=== PATIENT | female | born 1940 | race Caucasian/White ===

== ENCOUNTER 2018-01-16 10:54 | Observation (INO) | payer OTHER ==
--- NOTE | 2018-01-16 11:17 | CPEKG ---
Heart Rate: 53 RR Interval: 1132 P-R Interval: 264 QRSD Interval: 68 QT Interval: 452 QTC Interval: 425 P [place]: 46 QRS [place]: -13 T Wave [place]: 80 EKG Severity - ABNORMAL ECG - EKG Impression: SINUS RHYTHM EKG Impression: FIRST DEGREE AV BLOCK EKG Impression: LEFT ATRIAL ABNORMALITY Electronically Signed By: Hawa Sheehan 16-Jan-2018 15:17:43
[2018-01-16] MEDS ORDERED: NS 1,000 ML IV ONE ×3 (11:23→12:57)
[2018-01-16] MEDS ORDERED: NALOXONE HCL 0.4 MG/ML INJ IVP ONE (11:25)
[2018-01-16 11:34] LABS: PLATELET COUNT 305 10^3/uL (150-400)
--- NOTE | 2018-01-16 11:48 | EDPHY ---
H & P Stated Complaint: change in mental status-?syncope this am? Time Seen by Provider: 01/16/18 11:00 HPI/ROS: CHIEF COMPLAINT: Syncope HISTORY OF PRESENT ILLNESS: This is a 77-year-old female brought to the emergency department by her after she became unresponsive while they were driving in the car. 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 Her tells me that they were driving from [employer] to [employer] when he noticed that her head was nodding forward. She did not respond when he called her name. Her head then La old backward. He continued to call her name and she then woke up but seemed sleepy. She is unable to provide any description of what occurred. She has no complaints at the time of my interview -she denies headache, confusion, visual changes, weakness, numbness, chest pain , difficulty breathing, abdominal pain, nausea/vomiting/diarrhea/constipation, and pain with urination. She had an elevated blood pressure reading last night and took her lisinopril and metoprolol. She took her metoprolol as prescribed this morning. She has not taken any medications other than those that are prescribed. She does not use any pain medications. REVIEW OF SYSTEMS: A ten point review of systems was performed and is negative with the exception of the items mentioned in the HPI. Past medical history: 1. Acute leukemia in remission since 2010 2. Eyluq-pbrlwg-bavh disease the complicated a bone marrow transplant 3. Hypertension 4. DVT 5. Chronic kidney disease 6. Hyperlipidemia 7. Hypothyroidism 8. Depression/anxiety 9. Osteoporosis 10. 1st degree AV block 11. Pseudophakia Past surgical history: 1. section 2. Cataract surgery Family history: Father with leukemia, mother with breast cancer, both parents with coronary artery disease. Her mother at the age of 59 of myocardial infarction. Social history: She is here with her . She has never used tobacco or alcohol. She and her live in [facility]. 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 General Appearance: Alert. Vital signs reviewed. Initial blood pressure 92/51 , heart rate 61, respiratory rate 20, saturation 97% on 2 L nasal cannula, temperature 36.3 degrees. Eyes: Pupils equal and round, no conjunctival injection, no discharge. Anicteric. Mild scleral pallor. ENT, Mouth: Mucous membranes are moist, no oropharyngeal erythema or edema. Neck: No lymphadenopathy, supple. Trachea midline. Respiratory: Lungs are clear to auscultation; no wheezes, rales, or rhonchi. Cardiovascular: Regular rate and rhythm; no murmur, rub, or gallop. Heart rate in the 60s. Gastrointestinal: Abdomen is soft and nontender, no masses or organomegaly, bowel sounds normal. Rectal: Brown stool in the rectal vault, no tenderness. Skin: Warm and dry, no rashes on exposed skin, normal color. Back: Nontender to palpation over the thoracolumbar spine. No CVAT. Extremities: No lower extremity edema, no calf tenderness or swelling. Neurological: Alert and oriented but intermittently somnolent. Moving all four extremities easily and equally. Pupils are equal, round, and pinpoint. Extraocular movements full. Facial expressions symmetric. Tongue midline. Facial sensation intact to light touch. Hearing intact to spoken voice and finger rub. Shoulder shrug strong and symmetric. Strength is 4+ over 5 bilaterally with testing of all major motor groups. Sensation is intact to light touch over all 4 extremities. [id number] is performed accurately. Psychiatric: Normal affect. - Personal History Current Tetanus/Diphtheria Vaccine: No Current Tetanus Diphtheria and Acellular Pertussis (TDAP): No - Medical/Surgical History Hx Asthma: No Hx Chronic Respiratory Disease: No Hx Diabetes: No Hx Cardiac Disease: No Hx Renal Disease: No Hx Cirrhosis: No Hx Alcoholism: No Hx HIV/AIDS: No Hx Splenectomy or Spleen Trauma: No Other PMH: leukemia - Social History Smoking Status: Never smoked Constitutional: Initial Vital Signs Temperature (C) 37.0 C 01/16/18 11:08 Heart Rate 48 L 01/16/18 11:08 Respiratory Rate 16 01/16/18 11:08 O2 Sat (%) 95 01/16/18 11:08 O2 Delivery Mode Nasal Cannula O2 (L/minute) 2 Allergies/Adverse Reactions: pseudoephedrine [From Actifed] Allergy (Verified 01/16/18 11:40) triprolidine [From Actifed] Allergy (Verified 01/16/18 11:40) Home Medications: Medication Instructions Recorded Acetaminophen [Tylenol 325mg (*)] 325 mg PO DAILY PRN 01/16/18 Acyclovir [Zovirax 200 mg (*)] 200 mg PO BID 01/16/18 Amoxicillin Trihydrate 2,000 mg PO AD PRN 01/16/18 [Amoxicillin] Brimonidine/Timolol [Combigan (*)] 1 drop EACHEYE BID 01/16/18 Calcium Carbonate [Oyster Shell 500 mg PO BID 01/16/18 Calcium 500 mg (*)] Cholecalciferol Vit D3 [Vitamin D3 5,000 units PO DAILY 01/16/18 (*)] Gabapentin [Neurontin 300 MG (*)] 300 mg PO DAILY 01/16/18 Herbals/Supplements -Info Only 1 ea PO DAILY 01/16/18 LORazepam [Ativan (*)] 0.5 - 1 mg PO DAILY PRN 01/16/18 Latanoprost 0.005% [Xalatan 0.005% 1 drops EACHEYE HS 01/16/18 (*)] Levothyroxine [Synthroid 75 mcg 75 mcg PO DAILY06 01/16/18 (*)] Lisinopril [Zestril 5 mg (*)] 5 mg PO DAILY PRN 01/16/18 Metoprolol Tartrate [Lopressor 25 25 mg PO BID 01/16/18 mg (*)] Argenta-3 Fatty Acids [Fish Oil 1000 2,000 mg PO HS 01/16/18 mg (*)] Omeprazole 20 mg PO DAILY 01/16/18 Potassium Cl [Klor-Con 20 meq (*)] 20 meq PO DAILY 01/16/18 Simvastatin [Zocor] 10 mg PO HS 01/16/18 Sulfamethoxazole/Trimethoprim 1 each PO SUWEFR 01/16/18 [Bactrim 400-80 mg Tablet] Tacrolimus 1 mg PO DAILY 01/16/18 Temazepam [Restoril] 30 mg PO HS 01/16/18 Ursodiol [Actigall 300MG (*)] 300 mg PO BID 01/16/18 Zoledronic Acid/Mannitol-Water 4 mg IV .Q1-2YEARS 01/16/18 [Zometa 4 mg/100 ml Injection] hydrALAZINE [Apresoline 25 mg (RX)] 12.5 - 25 mg PO TID PRN 01/16/18 predniSONE 2.5 mg PO DAILY 01/16/18 Medical Decision Making - Diagnostics Imaging Results: Imaging Impressions Chest X-Ray 01/16/18 11:23 Impression: No acute findings in the chest. Head CT 01/16/18 11:47 Impression: 1. Moderate microvascular ischemic gliosis in the white matter of bilateral cerebral hemispheres. 2. No acute hemorrhage, hydrocephalus or mass effect. 3. Mild cerebrovascular atherosclerosis. 4. Consider MRI of the brain, if there is continued clinical concern. Findings and recommendations discussed with Emergency Department physician, Dr. Hawa Sheehan at 1226 hours on January 16, 2018. Final report concurs with initial preliminary interpretation. ED Course/Re-evaluation: Patient with what sounds like a syncopal episode. At the time of my evaluation she is appropriate in all of her answers but appears somewhat somnolent. Her pupils are pinpoint. She was given Narcan, although she denies taking any opiate medication. There was no response to the Narcan. EKG shows a first-degree block, no acute ischemic changes. Rate was in the 60s. Initial troponin is normal. She is not complaining of chest pain. One- view chest x-ray does not show acute pulmonary disease. She is not hypoxic. She has not had cough or fever. I do not find evidence of infection. She was hypotensive on arrival with a blood pressure of 92/51. She was given 2 L of IV normal saline with subsequent improvement in her blood pressure to 108/66 followed by reading of 132/66. I do not think that she has sepsis. One of my initial concerns was for GI bleeding/anemia. Hemoglobin and hematocrit are reasonable and stool is negative for blood. Nothing to suggest ongoing blood loss. No electrolyte abnormalities that would explain an altered mental stool status or encephalopathy. She does have an elevated D-dimer at 1.12. She has a history of DVT. However, her creatinine is 1.5 and she is known to have chronic kidney disease. She is being hydrated in the department, which might improve her kidney function, but if there is concern for PE she might need to have a ventilation perfusion scan rather than CT angiogram of the chest. Patient at 11 40 a.m. Complained of frontal headache. CT scan will be performed. CT of the head reported to me is negative for any acute finding such as hemorrhage or mass effect. She was serially examined while in the department and was noted to have waxing and waning level of alertness. At times she seemed completely awake and interactive in at other time she was sleepy, would appear to fall asleep, but would immediately respond to spoken voice. At no time did I witness slurred speech and no time was she confused. She was oriented to person, place, year, and situation repeatedly. There is still possibility of stroke and she might require further imaging to assess for this. She has no focal findings. She is being admitted to the PCU for evaluation of presumed syncope. Differential Diagnosis: Syncope including but not limited to vasovagal syncope, arrhythmia, dehydration , and blood loss. Altered mental status including but not limited to hypoglycemia, infectious process, electrolyte abnormality, head injury and intoxicants. - Data Points Laboratory Results: Laboratory Results 01/16/18 11:30 01/16/18 11:30 01/16/18 01/16/18 01/16/18 12:36 11:41 11:30 WBC RBC Hgb Hct MCV MCH MCHC RDW Plt Count MPV Neut % (Auto) Lymph % (Auto) [place] % (Auto) Eos % (Auto) Baso % (Auto) Nucleat RBC Rel Count Absolute Neuts (auto) Absolute Lymphs (auto) Absolute Monos (auto) Absolute Eos (auto) Absolute Basos (auto) Absolute Nucleated RBC Immature Gran % Immature Gran # PT 14.1 SEC SEC (12.0-15.0) INR 1.07 (0.83-1.16) APTT 23.8 SEC SEC (23.0-38.0) D-Dimer 1.12 ug/mLFEU H ug/mLFEU (0.00-0.50) Sodium 138 mEq/L mEq/L (135-145) Potassium 4.8 mEq/L mEq/L (3.5-5.2) Chloride 101 mEq/L mEq/L (97-110) Carbon Dioxide 26 mEq/l mEq/l (22-31) Anion Gap 11 mEq/L mEq/L (8-16) BUN 22 mg/dL mg/dL (7-23) Creatinine 1.5 mg/dL H mg/dL (0.6-1.0) Estimated GFR 33 Glucose 116 mg/dL H mg/dL (70-100) Calcium 9.8 mg/dL mg/dL (8.5-10.4) Total Bilirubin 0.6 mg/dL mg/dL (0.1-1.4) Conjugated Bilirubin 0.4 mg/dL mg/dL (0.0-0.5) Unconjugated Bilirubin 0.2 mg/dL mg/dL (0.0-1.1) AST 25 IU/L IU/L (14-46) ALT 41 IU/L IU/L (9-52) Alkaline Phosphatase 89 IU/L IU/L (38-126) Troponin I < 0.012 ng/mL ng/mL (0.000-0.034) Total Protein 6.2 g/dL L g/dL (6.3-8.2) Albumin 4.0 g/dL g/dL (3.5-5.0) Lipase 242 IU/L IU/L (23-300) Urine Color YELLOW Urine Appearance CLEAR Urine pH 7.0 (5.0-7.5) Ur Specific [place] 1.008 (1.002-1.030) Urine Protein NEGATIVE (NEGATIVE) Urine Ketones NEGATIVE (NEGATIVE) Urine Blood 1+ H (NEGATIVE) Urine Nitrate NEGATIVE (NEGATIVE) Urine Bilirubin NEGATIVE (NEGATIVE) Urine Urobilinogen NEGATIVE EU EU (0.2-1.0) Ur Leukocyte Esterase NEGATIVE (NEGATIVE) Urine RBC 1-3 /hpf /hpf (0-3) Urine WBC 5-10 /hpf H /hpf (0-3) Ur Epithelial Cells TRACE /lpf /lpf (NONE-1+) Urine Bacteria 2+ /hpf H /hpf (NONE SEEN) Urine Mucus TRACE /lpf /lpf (NONE-1+) Urine Glucose NEGATIVE (NEGATIVE) Stool Occult Bld Scrn 01/16/18 01/16/18 01/16/18 11:30 11:30 11:20 WBC 11.08 10^3/uL H 10^3/uL (3.80-9.50) RBC 4.15 10^6/uL L 10^6/uL (4.18-5.33) Hgb 14.0 g/dL g/dL (12.6-16.3) Hct 41.2 % % (38.0-47.0) MCV 99.3 fL fL (81.5-99.8) MCH 33.7 pg pg (27.9-34.1) MCHC 34.0 g/dL g/dL (32.4-36.7) RDW 14.0 % % (11.5-15.2) Plt Count 305 10^3/uL 10^3/uL (150-400) MPV 9.4 fL fL (8.7-11.7) Neut % (Auto) 69.8 % % (39.3-74.2) Lymph % (Auto) 17.6 % % (15.0-45.0) [place] % (Auto) 11.2 % % (4.5-13.0) Eos % (Auto) 0.6 % % (0.6-7.6) Baso % (Auto) 0.3 % % (0.3-1.7) Nucleat RBC Rel Count 0.0 % % (0.0-0.2) Absolute Neuts (auto) 7.74 10^3/uL H 10^3/uL (1.70-6.50) Absolute Lymphs (auto) 1.95 10^3/uL 10^3/uL (1.00-3.00) Absolute Monos (auto) 1.24 10^3/uL H 10^3/uL (0.30-0.80) Absolute Eos (auto) 0.07 10^3/uL 10^3/uL (0.03-0.40) Absolute Basos (auto) 0.03 10^3/uL 10^3/uL (0.02-0.10) Absolute Nucleated RBC 0.00 10^3/uL 10^3/uL (0-0.01) Immature Gran % 0.5 % % (0.0-1.1) Immature Gran # 0.05 10^3/uL 10^3/uL (0.00-0.10) PT REJ INR REJ APTT REJ D-Dimer REJ Sodium Potassium Chloride Carbon Dioxide Anion Gap BUN Creatinine Estimated GFR Glucose Calcium Total Bilirubin Conjugated Bilirubin Unconjugated Bilirubin AST ALT Alkaline Phosphatase Troponin I Total Protein Albumin Lipase Urine Color Urine Appearance Urine pH Ur Specific [place] Urine Protein Urine Ketones Urine Blood Urine Nitrate Urine Bilirubin Urine Urobilinogen Ur Leukocyte Esterase Urine RBC Urine WBC Ur Epithelial Cells Urine Bacteria Urine Mucus Urine Glucose Stool Occult Bld Scrn NEGATIVE (NEGATIVE) Medications Given: Discontinued Medications Diltiazem HCl (Cardizem 25 Mg/5 Ml Vial) 20 mg IVP EDNOW ONE Stop: 01/16/18 12:00 Last Admin: 01/16/18 12:26 Dose: Not Given Sodium Chloride (Ns) 1,000 mls @ 0 mls/hr IV EDNOW ONE; Wide Open PRN Reason: Protocol Stop: 01/16/18 11:24 Last Admin: 01/16/18 11:37 Dose: 1,000 mls Sodium Chloride (Ns) 1,000 mls @ 0 mls/hr IV ONCE ONE PRN Reason: Wide Open Stop: 01/16/18 11:29 Last Admin: 01/16/18 11:37 Dose: 1,000 mls Sodium Chloride (Ns) 1,000 mls @ 3,000 mls/hr IV ONCE ONE Stop: 01/16/18 13:16 Last Admin: 01/16/18 15:03 Dose: 1,000 mls Naloxone HCl (Narcan) 0.4 mg IVP EDNOW ONE Stop: 01/16/18 11:26 Last Admin: 01/16/18 11:37 Dose: 0.4 mg Departure - Departure Disposition: [facility] Acute Condition: Fair
[2018-01-16] MEDS ORDERED: DILTIAZEM 25 MG/5 ML VIAL IVP ONE (11:59)
[2018-01-16 12:06] LABS: INR 1.07 (0.83-1.16); PROTIME(PATIENT) 14.1 SEC (12.0-15.0)
[2018-01-16] MEDS ORDERED: ACETAMINOPHEN 325 MG TAB PO PRN (12:57)
[2018-01-16] MEDS ORDERED: ONDANSETRON DISINTEGRATING 4 MG TAB PO PRN (12:57)
[2018-01-16] MEDS ORDERED: ONDANSETRON 4 MG/2 ML VIAL IVP PRN (12:57)
--- NOTE | 2018-01-16 16:52 | GHP ---
[f rep st] HISTORY AND PHYSICAL DATE OF ADMISSION: 01/16/2018 CHIEF COMPLAINT: Syncope. 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 Patient reports being in her normal state of health in the morning when she jn, had normal br eakfast for her which is a piece of toast and a glass of juice, then took the dog for a walk without any notable abnormalities and shortness of breath, chest pain, weakness, numbness, tingling. The pat veronica did note a mild headache, for which she took 2 Tylenol, then got into the car to run errands wit h her and lost consciousness while in the car with him. The pulled over, attempted t o arouse his . Reported that she seemed confused when she first woke up, but then came to, and f orcefully requested that he quit agitating her. He then brought her to the emergency department for evaluation. In the ED, she reports lethargy and difficulty staying awake. Denies any numbness or tingling. Maverick es any chest pain, palpitations, dizziness, nausea, abdominal discomfort, myalgias, arthralgias. She denies any preceding episodes of syncope similar to this in the past. Patient denies any recent med ication changes. She does report that she measured an elevated blood pressure the evening prior to p resentation, for which she took her p.r.n. 5 mg dosing of lisinopril. Denies any recent use of a p.r .n. benzodiazepine and denies any dose changes for her chronic medications. PAST MEDICAL HISTORY: 1. AML status post bone marrow transplant in remission. 2. Hypertension, stable. SOCIAL HISTORY: Negative for tobacco, alcohol, or illicit drugs. FAMILY HISTORY: Positive for leukemia in her father. ADVANCE DIRECTIVES: Patient is full cor, full tube. Her would be her medical decision maker . REVIEW OF SYSTEMS: A 10-point review of systems is negative with the exception of that reported in t he HPI. PHYSICAL EXAMINATION: VITAL SIGNS: Blood pressure is 92/51, heart rate 48, respiratory rate 20, sat urating 97% on 2 L, 36.6. GENERAL: This is a healthy-appearing elderly female lying flat in bed. P atient is difficult to keep awake during my examination. HEENT: Eye exam is negative for any icteru s. Patient has moist mucous membranes. CARDIAC: Patient is bradycardic but regular. A quiet systo lic murmur is heard best at the right upper sternal border. PULMONARY: Good respiratory effort. Cl ear to auscultation bilaterally. GASTROINTESTINAL: Positive bowel sounds. Abdomen is soft and nont kevin. MUSCULOSKELETAL: Negative for any lower extremity edema. SKIN: Negative for any rashes. N EUROLOGIC: Patient is somnolent, lethargic on my exam, but when aroused, answering questions appropr iately. Cranial nerves 2-12 are grossly intact. Strength is intact throughout. Sensation is intact throughout. Gait was not assessed. PSYCHIATRIC: She is pleasant and cooperative on interview and examination. DATA: White count 11, hematocrit 41.2, platelet count of 305. D-dimer of 1.1. Creatinine 1.5, no b aseline. Liver function tests are normal. Troponin less than 0.012. Noncontrast CT of the head, which I personally reviewed and interpreted, shows no acute intracranial abnormalities, radiology comments on moderate microvascular disease. EKG, which I personally reviewed and interpreted, shows sinus rhythm, first degree AV block, leftward axis deviation with no acute ST-T changes. Chest x-ray, which I personally reviewed and interpreted, shows no acute infiltrates or edema. ASSESSMENT AND PLAN: This is a 77-year-old female presenting with syncope and acute encephalopathy. 1. Acute syncope. The etiology could include cardiac dysrhythmia, either tachycardia or bradycardia . The patient reports normal oral intake, though with concurrent acute kidney injury, it is possible the patient is dehydrated and volume down. Additionally possible, the patient could have had seizur e and postictal state and/or migraine-related neurologic symptoms. Will admit the patient for monito ring on telemetry, cycle 1 additional troponin, and order a transthoracic echocardiogram to evaluate the murmur. 2. Acute encephalopathy. As evidenced by somnolence, not explained by other causes. Patient was so mnolent enough upon arrival to the emergency department that they did trial Narcan. After review of medications with the patient and , it sounds as if medication noncompliance is less likely and illicit drugs are unlikely. MRI brain has been ordered. Monitor the patient closely on the progres s care unit. Will send urinalysis for her leukocytosis, although I do not suspect an underlying infe ction at this time. 3. Acute kidney injury, possibly related to dehydration. Will fluid resuscitate and recheck in the morning. 4. Prophylaxis with subcutaneous heparin secondary to her creatinine clearance. 5. Diet, regular. 6. Disposition. I expect in less than 2 midnights, if the patient's workup is normal, she should be a candidate for disposition in the morning. I have discussed the case with the emergency room physi marcelina. Patient will be triaged to the progressive care unit for syncope and encephalopathy. /[id number]/MODL
--- NOTE | 2018-01-16 16:52 | ASMTCMCOM ---
CM Note CM Note Notes: Pt presented to the ED through triage w/her Kalen. Pt had become somnolent and passed out while in the car. They were driving into [place] for the day from their home in [place]. Pt has a history of leukemia (been in remission since 2010) and is followed by Dr Sánchez at [facility] ([phone]); this CM called and requested most recent medical records. Records received and provided to ED MD. Pt's PCP is Dr Hunt in [place] ([phone]), records also requested and received. Pt usually independent. Exact DC needs unknown. CM to follow. Date Signed: 01/16/2018 04:51 PM Electronically Signed By:Mónica Wilde RN
[2018-01-16] MEDS ORDERED: PRAVASTATIN SODIUM 20 MG TAB PO SCH (21:00)
[2018-01-16] MEDS ORDERED: NON-FORMULARY NEW DRUG (Simvastatin [Zocor] 10 MG) PO SCH (21:00)
[2018-01-16] MEDS: ACYCLOVIR 200 MG CAP PO SCH (22:10)
[2018-01-16] MEDS: HEPARIN 5,000 UNIT/0.5 ML SYR SC SCH (22:10)
[2018-01-16] MEDS: URSODIOL 300 MG CAP PO SCH (22:11)
[2018-01-16] MEDS: BRIMONIDINE/TIMOLOL 5 ML OPHT.BTL EACHEYE SCH (22:11)
[2018-01-16] MEDS: LATANOPROST 0.005% 2.5 ML OPHT DROPS EACHEYE SCH (22:11)
[2018-01-17] MEDS: hydrALAZINE 25 MG TAB PO SCH ×2 (02:34→08:26)
[2018-01-17] MEDS ORDERED: LEVOTHYROXINE 75 MCG TAB PO SCH (06:00)
[2018-01-17] MEDS: HEPARIN 5,000 UNIT/0.5 ML SYR SC SCH (06:42)
[2018-01-17] MEDS: URSODIOL 300 MG CAP PO SCH (08:25)
[2018-01-17] MEDS: ACYCLOVIR 200 MG CAP PO SCH (08:25)
[2018-01-17] MEDS: BRIMONIDINE/TIMOLOL 5 ML OPHT.BTL EACHEYE SCH ×2 (08:27→09:36)
[2018-01-17] MEDS ORDERED: NON-FORMULARY NEW DRUG (Prednisone [Prednisone] 2.5 MG) PO SCH (09:00)
[2018-01-17] MEDS ORDERED: PANTOPRAZOLE SODIUM 40 MG TAB PO SCH (09:00)
[2018-01-17] MEDS ORDERED: NON-FORMULARY NEW DRUG (Omeprazole [Omeprazole] 20 MG) PO SCH (09:00)
[2018-01-17] MEDS ORDERED: ENOXAPARIN 30 MG/0.3 ML SYR SC SCH (09:00)
[2018-01-17] MEDS ORDERED: SULFAMETHOX/TMP 400/80 MG 1 TAB PO SCH (09:00)
[2018-01-17] MEDS ORDERED: predniSONE 1 MG TAB PO SCH (09:00)
[2018-01-17] MEDS ORDERED: TACROLIMUS 1 MG CAP PO SCH (09:00)
[2018-01-17] MEDS: LATANOPROST 0.005% 2.5 ML OPHT DROPS EACHEYE SCH (09:35)
[2018-01-17 11:12] VITALS: BP 125/64
--- NOTE | 2018-01-17 11:23 | ECHO ---
[email or web address] [address] Main: [phone] Fax: Transthoracic Echocardiogram Name: ERMA BARRIENTOS MR#: [id number] Study Date: 01/17/2018 Study Time: 09:09 AM Date of : 1940 Age: 77 year(s) Height: 144.8 cm (57 in.) Weight: 45.81 kg (101 lb.) BSA: 1.35 m2 Gender: Female Examination: Echo Indication: Cardiac: syncope Image Quality: Contrast: Requested by: Serenity Schaeffer BP: 171 mmHg/82 mmHg Heart Rate: Rhythm: Indication: Cardiac: syncope Procedure Staff Car Unloader: Anjel Felipe RDCS Reading Physician: Jose Alberto Everett MD Requesting Provider: Conclusions: Normal global systolic LV function. EF is 77 %. Trivial mitral valve regurgitation. Trivial aortic valve regurgitation. Measurements: Chambers Valvular Assessment AV/MV Valvular Assessment TV/PV Normal Normal Normal Name Value Range Name Value Range Name Value Range Ao Connie (MM): 2.7 cm (2.2 cm-3.7 AV Vmax: 1.45 m/s (1 m/s-1.7 PV Vmax: 1.29 m/s (0.6 m/s-0.9 cm) m/s) m/s) IVSd (2D): 0.9 cm (0.6 cm-1.1 AV maxP mmHg ( - ) PV PGmax: 7 mmHg ( - ) cm) LVOT Vmax: 0.97 m/s (0.7 m/s-1.1 LVDd (2D): 3.8 cm (3.9 cm-5.3 m/s) cm) AR (PHT): 754 ms ( - ) LVDs (2D): 2.1 cm (2.1 cm-4 MV E Vmax: 1.17 m/s ( - ) cm) MV A Vmax: 1.71 m/s ( - ) LVPWd (2D): 1.1 cm ( - ) MV E/A: 0.68 ( - ) LVEF (2D): 77 (>=54 %) Continued Measurements: Chambers Valvular Assessment AV/MV Name Value Name Value LADs Lon.8 cm MV E' Septal: 0.05 m/s LA Area: 13.1 cm2 MV E/E' Septal: 24.00 LA Volume: 29 ml MV E/E' Lateral: 20.70 LA Volume Index: 21.5 ml/m2 AR Vmax: 2.65 cm/s Patient: ERMA BARRIENTOS Study Date: 01/17/2018 Page 1 of 2 09:09 AM Findings: Left Ventricle: Normal size left ventricle. No LV hypertrophy. Normal global systolic LV function. EF is 77 %. No regional wall motion abnormality. Diastolic dysfunction is present. . Right Ventricle: Normal size right ventricle. Normal RV function. Left Atrium: The left atrium is normal in size. Right Atrium: The right atrium is normal in size. Mitral Valve: The mitral valve is normal in appearance and function. Trivial mitral valve regurgitation. Aortic Valve: The aortic valve is tri-leaflet and functions normally. Trivial aortic valve regurgitation. Tricuspid Valve: The tricuspid valve is normal in appearance and function. Trivial tricuspid valve regurgitation. Pulmonic Valve: The pulmonic valve is normal in appearance and function. Aorta: The aorta is normal. Pericardium: No pericardial effusion. (No Signature Object) Patient: ERMA BARRIENTOS Study Date: 01/17/2018 Page 2 of 2 09:09 AM [id number]
--- NOTE | 2018-01-17 12:11 | ASMTCMCOM ---
CM Note CM Note Notes: 01/17/2018 Case Management Note Met pt and Kalen [phone] during rounds today. There are no case management d/c needs identified. Pt lives independently with her . Pt is ambulating without difficulty. Case Management d/c poc: anticipating independent with follow up as directed. Case Management available if needs change. Date Signed: 01/17/2018 12:10 PM Electronically Signed By:Raquel Bentley RN
--- NOTE | 2018-01-17 15:39 | ASDISCHSUM ---
Discharge Information Plan Status:Home with No Needs Medically Cleared to Leave:01/17/2018 Discharge Date:01/17/2018 02:45 PM CM D/C Disposition:Home, Routine, Self-Care ADT D/C Disposition:Home, Routine, Self-Care Projected Discharge Date:01/17/2018 02:45 PM Transportation at D/C:Family Discharge Delay Reason: Follow-Up Date:01/17/2018 02:45 PM Discharge Slot: Final Diagnosis: Placement Information Patient Contact Information Contact Name:BRYANNA Relationship: Address:[address] [place] [address] Work Phone: City:[place] [facility] Phone: [facility]/Zip Code:[place] [address] Email: Financial Information Financial Class:Medicare Primary Plan Desc:MEDICARE OUTPATIENT Primary Plan Number:[id number] Secondary Plan Desc: Secondary Plan Number: Assessment Information [facility] CM Progress Note CM Note CM Note Notes: Pt presented to the ED through triage w/her Kalen. Pt had become somnolent and passed out while in the car. They were driving into [place] for the day from their home in [place]. 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 Records received and provided to ED MD. Pt's PCP is Dr Hunt in [place] ([phone]), records also requested and received. Pt usually independent. Exact DC needs unknown. CM to follow. Date Signed: 01/16/2018 04:51 PM Electronically Signed By:Mónica Wilde RN [facility] Length of stay for Answers: 1 day current admission Acuity / Level of Answers: No Care: Did the patient have an inpatient admission? Comorbidities - select Answers: Any tumor (including all that apply lymphoma or leukemia) Moderate or severe liver or renal disease # of Emergency department Answers: 1-2 visits in the last 6 months Score: 8 Date Signed: 01/17/2018 03:39 PM Electronically Signed By:Raquel Bentley RN [facility] CM Progress Note CM Note CM Note Notes: 01/17/2018 Case Management Note Met pt and Kalen [phone] during rounds today. There are no case management d/c needs identified. Pt lives independently with her . Pt is ambulating without difficulty. Case Management d/c poc: anticipating independent with follow up as directed. Case Management available if needs change. Date Signed: 01/17/2018 12:10 PM Electronically Signed By:Raquel Bentley RN Intervention Information Intervention Type:Health Clinic Date of Service:01/16/2018 04:58 PM Patient Type:Observation Staff Member:ABIMAEL Wilde [place] Hours:0.25 Discipline:Safe Deposit Box Rental Clerk Severity: Comment:Communication with PCP and oncologist; records received. Intervention Type:*[facility]ILL-Signed Date of Service:01/17/2018 10:33 AM Patient Type:Observation Staff Member:Sarah Carolina Hours: Discipline: Severity: Comment:
--- NOTE | 2018-01-17 16:33 | GDS ---
[f rep st] DISCHARGE SUMMARY DISCHARGE DIAGNOSES: Include: 1. Syncope. 2. Encephalopathy. 3. Acute kidney injury. 4. Hypertension. 5. AML, status post bone marrow transplant. HISTORY OF PRESENT ILLNESS: A 77-year-old female with a history of AML, status post bone marrow ma splant, in remission, who presents with a syncopal episode the day of presentation. For details of darby antonio's initial presentation, please see the history and physical dated 01/16/2018. CONSULTATIVE SERVICES: None. PROCEDURES: On 01/16/2018, patient had an MRI of the brain that showed no acute infarcts or bleeds. On 01/16/2018, patient had a transthoracic echocardiogram that showed normal LV size and function wi th no segmental wall motion abnormalities. HOSPITAL COURSE: By issue: 1. Syncope: Patient was admitted, fluid resuscitated, followed on telemetry. She ruled out. Had n ormal telemetry monitoring and normal transthoracic echo as well as neurologic imaging. Greatest aiden picion at the time of discharge is that the patient potentially was a bit dehydrated based on her acu te kidney injury, responsive to fluid resuscitation. We did make recommendations to maintain hydrati on in the outpatient setting, and asked the patient to avoid using her p.r.n. ANA inhibitor until see n in the outpatient setting by her PCP for recurrent lab check. 2. Hypertension: Patient uses p.r.n. medications for systolic blood pressures above 180. She had u sed some lisinopril the day prior to presentation. We have asked the patient to follow at her PCPs o ffice in the next 7-10 days for a BP check and a discussion related to her antihypertensive regimen. 3. Encephalopathy: Patient presented with a syncopal episode, but remained markedly somnolent durin g her evaluation in the emergency department and early part of her stay. It prompted a neurologic wo rkup, including CT of the head and MRI of the brain, all of which were negative. Patient's neurologi c examination is normal on the day of disposition. She will follow with her PCP for followup. MEDICATIONS: At the time of disposition, please reference the med rec. Of note, we have made no sig nificant changes beyond the recommendation to hold on using p.r.n. ANA inhibitor until seen by her ou tpatient provider. PENDING STUDIES: At the time of this dictation, none. She will see her PCP in the next 7-10 days. I spent greater than 30 minutes in the planning and coor dination of this discharge. /[id number]/MODL
[2018-01-18] MEDS ORDERED: predniSONE 5 MG TAB PO SCH (09:00)
== END 2018-01-17 14:45 | disposition home or self-care (01) ==
LOC: F2W 14:07
PROVIDERS: ADMIT Hospitalist; ATTEND Hospitalist
DX: R55 Syncope and collapse (principal); G93.40 Encephalopathy, unspecified; N17.9 Acute kidney failure, unspecified; E86.9 Volume depletion, unspecified; C92.01 Acute myeloblastic leukemia, in remission; I44.0 Atrioventricular block, first degree; I12.9 Hypertensive chronic kidney disease with stage 1 through stage 4 chronic kidney disease, or unspecified chronic kidney disease; N18.9 Chronic kidney disease, unspecified; E78.5 Hyperlipidemia, unspecified; E03.9 Hypothyroidism, unspecified; F32.9 Major depressive disorder, single episode, unspecified; F41.9 Anxiety disorder, unspecified; M81.0 Age-related osteoporosis without current pathological fracture; Z94.81 Bone marrow transplant status; Z86.718 Personal history of other venous thrombosis and embolism; Z80.3 Family history of malignant neoplasm of breast; Z80.7 Family history of other malignant neoplasms of lymphoid, hematopoietic and related tissues; Z96.1 Presence of intraocular lens
CPT/HCPCS: 70450; 70551; 71045; 93005; 93306; 96361; 96374; 99285; G0378; J1644; J2310; J7507; J7512; 80307; G0480